=== PATIENT | female | born 1985 | race Caucasian/White ===

== ENCOUNTER 2025-09-12 00:25 | Emergency (ER) | payer BC, OTHER, SELFPAY ==
[2025-09-12 00:29] VITALS: BP 119/97; PULSE 111; TEMP 36.8; O2SAT 99; BMI 41.9
--- NOTE | 2025-09-12 01:16 | ED.SKABFB1 ---
HPI - Skin/Abscess/Foreign Bdy General Chief complaint: Skin/Abscess/Foreign Body Stated complaint: WOUND CHECK Time Seen by Provider: 09/12/25 00:34 Source: patient Mode of arrival: walk-in Limitations: no limitations History of Present Illness HPI narrative: This 39-year-old female with a history of hidradenitis presents for evaluation of a tender nodular erythematous area in her left mons pubis area. She states it has been present for the past several days. It was draining some milky colored liquid earlier in the day. She states that she has never had an outbreak of hidradenitis in this area and is not sure how to manage it. She states she typically gets hidradenitis in her armpits and on her abdominal wall. She has not had any fever. She also is not certain if she may be because she has not had a menstrual period in 2 months. She denies any vaginal bleeding. She denies any chest pain or shortness of breath. She has not been seen by a medical certification specialist for her hidradenitis. She recently relocated to this area from the [facility]. Related Data Allergies Allergy/AdvReac Type Severity Reaction Status Date / Time metronidazole (From Flagyl) Allergy Severe Unknown Verified 09/12/25 00:39 prochlorperazine (From Allergy Intermediate Agitated Verified 09/12/25 00:39 Compazine) Review of Systems ROS Status of ROS 10 or more systems reviewed and unremarkable except as noted in history and below PFSH PFSH Social History Little interest or pleasure in doing things: not at all Feeling down, depressed, or hopeless: not at all Exam Narrative Exam Narrative: Vital signs and Nursing Notes reviewed: Is afebrile, mildly tachycardic, blood pressure is elevated at 119/97, she is not hypoxic with pulse ox of 99% on room air General: Awake, alert, oriented, anxious overweight female, no respiratory distress declines wearing a gown HEENT: Normocephalic atraumatic, mucous membranes are moist and pink, eyes are clear, normal conjunctiva, vision is grossly intact Chest: Lungs are clear to auscultation with good air entry, there is no wheezing rhonchi or rales appreciated no accessory muscle use, patient is speaking in complete sentences CVS: Regular rate and rhythm S1-S2, tachycardic triage with a pulse of 111, on my exam her pulse was 90 and regular with no murmurs rubs or gallops, pulses are brisk and equal bilaterally ABD: Patient would only reveal to me the area of her concern which is in the left lateral mons pubis area where she has a small approximately 1 cm erythematous area with some local edema, clear pink discharge was expressed. There is no sign of any necrotizing fasciitis however the patient would not let me do a more thorough exam and would only pull her pants down to the area she wanted me to be able to visualize. Extremities: Moving all extremities, no lower extremity tenderness or swelling noted, negative Homans' sign, pulses are brisk and equal bilaterally Skin: Normal in appearance without rash,pallor, petechiae or purpura Neuro: No focal deficits Constitutional Vital Signs, click to edit/add: Last Vital Signs Temp 98.2 F 09/12/25 00:29 Pulse 111 H 09/12/25 00:29 Resp 18 09/12/25 00:29 BP 119/97 H 09/12/25 00:29 Pulse Ox 99 09/12/25 00:29 O2 Del Method Room Air 09/12/25 00:29 Course Vital Signs Vital signs: Vital Signs Temperature 98.2 F 09/12/25 00:29 Pulse Rate 111 H 09/12/25 00:29 Respiratory Rate 18 09/12/25 00:29 Blood Pressure 119/97 H 09/12/25 00:29 Pulse Oximetry 99 09/12/25 00:29 Oxygen Delivery Method Room Air 09/12/25 00:29 Temperature 98.2 F 09/12/25 00:29 Pulse Rate 111 H 09/12/25 00:29 Respiratory Rate 18 09/12/25 00:29 Blood Pressure 119/97 H 09/12/25 00:29 Pulse Oximetry 99 09/12/25 00:29 Oxygen Delivery Method Room Air 09/12/25 00:29 MDM - Skin/Abscess/Foreign Bdy MDM Narrative Medical decision making narrative: This 39-year-old female with a history of hidradenitis presents for evaluation of a tender nodule in her left mons pubis area that has been present for the past several days. She states she has never had a flare of her hidradenitis in this area. It is draining clear drainage. This was cultured. She has an approximately 1 cm area that is mostly closed but I was able to express the clear drainage that was cultured from. There is a local area of erythema but no cellulitis or sign of necrotizing fasciitis. The patient also states that she does not know if she may be but declined a regnancy test stating she could do that at home. She requested to know what I felt was the best management for this skin infection. Firstly I explained to her that I do not think this is consistent with hidradenitis it is more of a folliculitis. I offered to put her on antibiotics and she suggested that she use warm compresses for the area. In light of the fact that we do not know if she was I ordered Keflex and a prescription for Keflex was prescribed to her however the patient stated that her had to go to work and she could not wait for the prescription and eloped from the emergency department before this was dispensed to her or prescribed to her. I did suggest warm compresses and avoidance of occlusive dressing or medication such as bacitracin or Neosporin. Discharge Plan Discharge Chief Complaint: Skin/Abscess/Foreign Body Clinical Impression: Folliculitis Patient Disposition: Home, Self-Care Time of Disposition Decision: 00:50 Condition: Good Print Language: Syrian Instructions: Folliculitis (ED) Additional Instructions: Use antibiotics as directed, use warm compresses for pain and to help the area drain. Return to emergency department for fever, worsening redness swelling, drainage or any concerns.
== END 2025-09-12 01:46 | disposition home or self-care (01) ==
PROVIDERS: Emergency Provider Emergency Medicine
DX: L73.9 Follicular disorder, unspecified (principal); L73.2 Hidradenitis suppurativa
CPT/HCPCS: 87070; 87075; 99283